=== PATIENT | female | born 1935 | race Caucasian/White ===

== ENCOUNTER 2016-06-07 15:54 | Emergency (ER) | payer OTHER, BC ==
[~2016-06-07] VITALS: Ht 144.8 cm; Wt 44.4 kg
[~2016-06-07 15:54] MED LIST: DILT120C68 PO; HYDR-5688 PO; LEVO100T7 PO; WARF-246 PO; WARF5TAB90 PO
[2016-06-07 16:04] VITALS: TEMP 36.6; Ht 144.8 cm; Wt 44.4 kg
--- NOTE | 2016-06-07 16:28 | EMERGENCY ROOM VISIT NOTE ---
History Report prepared by Alley: Leonel Pastrana Under the Supervision of: Dr. Ger Tomas D.O. First contact with patient: 16:17 Chief Complaint: SWELLING TO EXTREMITY Stated Complaint: SWOLLEN ARM, SENT BY DR NOVAK TO CHECK FOR CLOT History of Present Illness The patient is an 81 year old female who presents to the Emergency Room with complaints of persistent left upper extremity swelling for the past two weeks. The patient was referred to the ED by her Implementation Specialist to role out DVT. The patient does not have any arm pain. She denies fevers, chest pain, shortness of breath, new back pain, leg pain or swelling. The patient denies recent falls or arm injury. She has a history of breast cancer for which she had her left axillary lymph nodes removed. She is on Warfarin for atrial fibrillation. She has a history of arthritis. Source of History: patient Onset: two weeks ago Position: arm (left) Quality: other (swelling) Timing: other (persistent) Associated Symptoms: No SOB, No back pain, No chest pain, No fevers Review of Systems See HPI for pertinent positives & negatives. A total of 10 systems reviewed and were otherwise negative. Past Medical & Surgical Medical Problems: (1) Breast carcinoma Surgical Problems: (1) H/O mastectomy Family History FHx: cancer FHx: heart disease Social History Smoking Status: Current Every Day Smoker Drug Use: none Marital Status: Housing Status: lives with family Occupation Status: retired Current/Historical Medications Scheduled Diltiazem Hcl Ext Rel (Tiazac), 120 MG PO DAILY Levothyroxine Sodium (Levothyroxine Sodium), 100 MCG PO DAILY Warfarin Sodium (Coumadin), 5 MG PO -F Miscellaneous Medications Warfarin Sodium (Warfarin Sodium), 2.5 MG PO Allergies Coded Allergies: Morphine (Verified Allergy, Intermediate, vomiting, 06/07/16) Tolmetin (Verified Allergy, Intermediate, HIVES, 06/07/16) Sulfa Antibiotics (Verified Allergy, Unknown, "Makes me ill", 06/07/16) Meperidine (Verified Adverse Reaction, Mild, VOMITING, 06/07/16) Physical Exam Vital Signs Date Time Temp Pulse Resp B/P Pulse Ox O2 Delivery O2 Flow Rate FiO2 06/07/16 21:06 68 18 123/54 99 06/07/16 18:25 82 18 148/71 97 Room Air 06/07/16 16:04 36.6 73 16 124/72 99 Room Air Physical Exam GENERAL: Patient is awake, alert, and in no acute distress. Patient is resting comfortably and showing no signs of anxiety EYES: The conjunctivae are clear. The pupils are round and reactive. EARS, NOSE, MOUTH AND THROAT: The nose is without any evidence of any deformity. Mucous membranes are moist tongue is midline NECK: The neck is nontender and supple. RESPIRATORY: Normal respiratory effort is noted there is no evidence of wheezing rhonchi or rales CARDIOVASCULAR: Regular rate and rhythm noted there no murmurs rubs or gallops normal S1 normal S2 GASTROINTESTINAL: The abdomen is soft. Bowel sounds are present in all quadrants. Abdomen is nontender MUSCULOSKELETAL/EXTREMITIES: Swelling and fullness of the left axilla, dilated veins over the left anterior chest wall, swelling of the left upper extremity, pulses were symmetric. SKIN: There is no obvious evidence of any rash. There are no petechiae, pallor or cyanosis noted. Pedal edema bilaterally. NEUROLOGIC: Patient is awake alert and oriented x3. Medical Decision & Procedures ER Provider Diagnostic Interpretation: Radiology results as stated below per my review and radiologist interpretation: CHEST ONE VIEW PORTABLE CLINICAL HISTORY: LUE swelling pain. Edema. COMPARISON STUDY: None FINDINGS: Unipolar cardiac pacemaker . Lungs are clear. Diaphragms smooth. IMPRESSION: No acute process. Electronically signed by: Mitul Nagel M.D. 06/07/2016 4:43 PM Dictated Date/Time: 06/07/2016 4:42 PM VENOUS DOPPLER LEFT ARM UPPER EXTREMITY VENOUS DOPPLER HISTORY: Pain. Edema. swelling COMPARISON STUDY: None. FINDINGS: The internal jugular vein is patent. There is normal flow within the subclavian vein. There is normal flow and compressibility within the left axillary, basilic, brachial, radial, ulnar, and visualized cephalic veins. 7 x 5 cm hematoma/complex tissue left axilla IMPRESSION: No DVT within the upper extremity. 7 x 5 cm complex tissue/hematoma left axilla Electronically signed by: Mitul Nagel M.D. 06/07/2016 6:22 PM Dictated Date/Time: 06/07/2016 6:[address] angiogram of the chest CHEST ANGIO WITH CONTRAST CLINICAL HISTORY: left axiliary swelling .. EVAL FOR AORTITIS PER DR. RODRIGUEZ aortitis Findings: Soft tissue density deep to the patient's left cardiac pacemaker battery pack. This statistically suggestive of hematoma and measures 7 x 5 cm. Mediastinal hilar regions show no significant keo pathology. There is atherosclerotic change of thoracic aorta. There is no evidence for aneurysm or dissection. Pulmonary arterial vasculature enhances appropriately. Lungs are considered generally clear. There is no evidence pneumothorax. COMPARISON STUDY: None IMPRESSION: 1. Moderate atherosclerotic change of thoracic aorta. 2. No evidence for aneurysm, dissection, or aortitis. 3. Lungs are clear. 4. Soft tissue density deep to the patient's left unipolar cardiac pacemaker statistically indicative of a soft tissue hematoma. This should be followed to resolution. Electronically signed by: Mitul Nagel M.D. 06/07/2016 7:50 PM Dictated Date/Time: 06/07/2016 7:47 PM Laboratory Results 06/07/16 17:07 Red Blood Count 4.26, Mean Corpuscular Volume 93.2, Mean Corpuscular Hemoglobin 31.0, Mean Corpuscular Hemoglobin Concent 33.2, Mean Platelet Volume 10.6, Neutrophils (%) (Auto) 58.3, Lymphocytes (%) (Auto) 29.8, Monocytes (%) (Auto) 7.5, Eosinophils (%) (Auto) 3.1, Basophils (%) (Auto) 0.3, Neutrophils # (Auto) 4.53, Lymphocytes # (Auto) 2.31, Monocytes # (Auto) 0.58, Eosinophils # (Auto) 0.24, Basophils # (Auto) 0.02 06/07/16 17:07 Test 06/07/16 17:07 White Blood Count 7.76 K/uL (4.8-10.8) Red Blood Count 4.26 M/uL (4.2-5.4) Hemoglobin 13.2 g/dL (12.0-16.0) Hematocrit 39.7 % (37-47) Mean Corpuscular Volume 93.2 fL (80-100) Mean Corpuscular Hemoglobin 31.0 pg (25-34) Mean Corpuscular Hemoglobin Concent 33.2 g/dl (32-36) Platelet Count 281 K/uL (130-400) Mean Platelet Volume 10.6 fL (7.4-10.4) Neutrophils (%) (Auto) 58.3 % Lymphocytes (%) (Auto) 29.8 % Monocytes (%) (Auto) 7.5 % Eosinophils (%) (Auto) 3.1 % Basophils (%) (Auto) 0.3 % Neutrophils # (Auto) 4.53 K/uL (1.4-6.5) Lymphocytes # (Auto) 2.31 K/uL (1.2-3.4) Monocytes # (Auto) 0.58 K/uL (0.11-0.59) Eosinophils # (Auto) 0.24 K/uL (0-0.5) Basophils # (Auto) 0.02 K/uL (0-0.2) RDW Standard Deviation 57.6 fL (36.4-46.3) RDW Coefficient of Variation 16.8 % (11.5-14.5) Immature Granulocyte % (Auto) 1.0 % Immature Granulocyte # (Auto) 0.08 K/uL (0.00-0.02) Erythrocyte Sedimentation Rate 28 mm/hr (0-21) Prothrombin Time 18.2 SECONDS (9.0-12.0) Prothromb Time International Ratio 1.7 (0.9-1.1) Activated Partial Thromboplast Time 33.5 SECONDS (21.0-31.0) Partial Thromboplastin Ratio 1.3 Anion Gap 7.0 mmol/L (3-11) Est Creatinine Clear Calc Drug Dose 35.6 ml/min Estimated GFR () 88.3 Estimated GFR (Non- 76.2 BUN/Creatinine Ratio 21.9 (10-20) Calcium Level 9.0 mg/dl (8.5-10.1) Total Bilirubin 0.7 mg/dl (0.2-1) Direct Bilirubin 0.1 mg/dl (0-0.2) Aspartate Amino Transf (AST/SGOT) 18 U/L (15-37) Alanine Aminotransferase (ALT/SGPT) 18 U/L (12-78) Alkaline Phosphatase 63 U/L (45-117) C-Reactive Protein 0.38 mg/dl (0-0.29) Total Protein 6.5 gm/dl (6.4-8.2) Albumin 3.1 gm/dl (3.4-5.0) Laboratory results per my review. ED Course 1617: The patient was evaluated in room C10. A complete history and physical examination were performed. 1845: Updated the patient. She will get a CTA Chest. 2009: Discussed the case with Valery Huffman Yard Cleaner. 2039: Reassessed the patient. Discussed the discharge instructions and findings with her. She verbalized understanding and agreement. The patient is ready for discharge. Medical Decision Prior records reviewed and summarized above. Triage Nursing notes reviewed. Additional history obtained from the family. Differential diagnosis: Etiologies such as DVT, musculoskeletal, infection, joint effusion, trauma, lymphedema, idiopathic, CHF, as well as others were entertained.. The patient is an 81-year-old female who presented to emergency department for an evaluation of left upper sternal he swelling. The patient was seen by her primary lamination inspector and was sent to the emergency department for further evaluation. The patient was thought to have a DVT but on ultrasound she was found have a fluid collection which was possibly consistent with hematoma. This was confirmed using CT. It appeared to be related to her pacemaker site. I discussed the patient's laboratory and radiographic studies with her. I also discussed her case with her primary cardiology group. The patient was instructed to hold her Coumadin. She was also encouraged to keep the arm elevated as much as possible. She was also encouraged to follow-up with her air purifier servicer for further evaluation. Discussing the case with the air purifier servicer he feels she may need to be referred to [facility] to seek cardiothoracic surgery if the symptoms worsen or do not appear to improve in a meaningful timeframe. Consults Time Called: 1999 Consulting Physician: Valery Huffman Yard Cleaner. Returned Call: 2009 2009: Discussed the case with Valery Huffman Yard Cleaner. Impression Primary Impression: Hematoma of left chest wall Additional Impressions: Hematoma of left axilla Swelling of left upper extremity Scribe Attestation The scribe's documentation has been prepared under my direction and personally reviewed by me in its entirety. I confirm that the note above accurately reflects all work, treatment, procedures, and medical decision making performed by me. Departure Information Dispostion Home / Self-Care Referrals No Doctor, Assigned (PCP) Forms HOME CARE DOCUMENTATION FORM, IMPORTANT VISIT INFORMATION, WORK / SCHOOL INSTRUCTIONS Patient Instructions ED Hematoma, [facility], Pacemakers Additional Instructions Follow-up with your air purifier servicer as soon as possible. Keep your arm elevated as much as possible. Do not take your Coumadin until you have been reevaluated by the air purifier servicer. Avoid any strenuous activity or heavy lifting especially with the left arm. Problem Qualifiers Primary Impression: Hematoma of left chest wall Encounter type: initial encounter Qualified Codes: S20.212A - Contusion of left front wall of thorax, initial encounter Additional Impressions: Hematoma of left axilla Encounter type: initial encounter Qualified Codes: S40.022A - Contusion of left upper arm, initial encounter
--- NOTE | 2016-06-07 16:45 | DIAGNOSTIC IMAGING REPORT ---
CHEST ONE VIEW PORTABLE CLINICAL HISTORY: LUE swelling pain. Edema. COMPARISON STUDY: None FINDINGS: Unipolar cardiac pacemaker . Lungs are clear. Diaphragms smooth. IMPRESSION: No acute process. Electronically signed by: Mitul Nagel M.D. 06/07/2016 4:43 PM Dictated Date/Time: 06/07/2016 4:42 PM
[2016-06-07 17:21] LABS: BASO % 0.3 %; BASO ABS # 0.02 K/uL (0-0.2); COMPLETE YES; EOS % 3.1 %; HEMATOCRIT 39.7 % (37-47); LYMPH % 29.8 %; LYMPH ABS # 2.31 K/uL (1.2-3.4); MEAN CELL VOLUME 93.2 fL (80-100); MEAN CORPUSCULAR HGB CONC 33.2 g/dl (32-36); MEAN PLATELET VOLUME 10.6 fL (7.4-10.4); MONO % 7.5 %; NEUT % 58.3 %; PLATELET COUNT 281 K/uL (130-400); RED BLOOD COUNT 4.26 M/uL (4.2-5.4); WHITE BLOOD COUNT 7.76 K/uL (4.8-10.8)
[2016-06-07 17:29] LABS: INR 1.7 (0.9-1.1); PARTIAL THROMBOPLASTIN RATIO 1.3; PROTHROMBIN TIME (PATIENT) 18.2 SECONDS (9.0-12.0)
[2016-06-07 17:40] LABS: BUN/CREATININE RATIO 21.9 (10-20); CREATININE 0.73 mg/dl (0.60-1.20); POTASSIUM 3.8 mmol/L (3.5-5.1)
[2016-06-07 17:42] LABS: C-REACTIVE PROTEIN 0.38 mg/dl (0-0.29)
--- NOTE | 2016-06-07 18:24 | DIAGNOSTIC IMAGING REPORT ---
VENOUS DOPPLER LEFT ARM UPPER EXTREMITY VENOUS DOPPLER HISTORY: Pain. Edema. swelling COMPARISON STUDY: None. FINDINGS: The internal jugular vein is patent. There is normal flow within the subclavian vein. There is normal flow and compressibility within the left axillary, basilic, brachial, radial, ulnar, and visualized cephalic veins. 7 x 5 cm hematoma/complex tissue left axilla IMPRESSION: No DVT within the upper extremity. 7 x 5 cm complex tissue/hematoma left axilla Electronically signed by: Mitul Nagel M.D. 06/07/2016 6:22 PM Dictated Date/Time: 06/07/2016 6:20 PM
[2016-06-07] MEDS ORDERED: OPTIRAY 320 IV PRN (19:15)
--- NOTE | 2016-06-07 19:52 | DIAGNOSTIC IMAGING REPORT ---
CT angiogram of the chest CHEST ANGIO WITH CONTRAST CLINICAL HISTORY: left axiliary swelling .. EVAL FOR AORTITIS PER DR. RODRIGUEZ aortitis Findings: Soft tissue density deep to the patient's left cardiac pacemaker battery pack. This statistically suggestive of hematoma and measures 7 x 5 cm. Mediastinal hilar regions show no significant keo pathology. There is atherosclerotic change of thoracic aorta. There is no evidence for aneurysm or dissection. Pulmonary arterial vasculature enhances appropriately. Lungs are considered generally clear. There is no evidence pneumothorax. COMPARISON STUDY: None IMPRESSION: 1. Moderate atherosclerotic change of thoracic aorta. 2. No evidence for aneurysm, dissection, or aortitis. 3. Lungs are clear. 4. Soft tissue density deep to the patient's left unipolar cardiac pacemaker statistically indicative of a soft tissue hematoma. This should be followed to resolution. Electronically signed by: Mitul Nagel M.D. 06/07/2016 7:50 PM Dictated Date/Time: 06/07/2016 7:47 PM
[2016-06-07 21:06] VITALS: BP 123/54; PULSE 68; O2SAT 99
== END 2016-06-07 21:07 | disposition home or self-care (01) ==
LOC: C.EDB 15:55 → C.EDC 21:07
DX: S20.212A Contusion of left front wall of thorax, initial encounter (principal); S40.022A Contusion of left upper arm, initial encounter; M79.89 Other specified soft tissue disorders; I48.91 Unspecified atrial fibrillation; Z79.01 Long term (current) use of anticoagulants; Z79.899 Other long term (current) drug therapy; Z85.3 Personal history of malignant neoplasm of breast; X58.XXXA Exposure to other specified factors, initial encounter; F17.200 Nicotine dependence, unspecified, uncomplicated